=== PATIENT | female | born 1940 | race Caucasian/White ===

== ENCOUNTER → 2017-01-24 | Outpatient (CLI) | payer OTHER ==
[~2017-01-24] MED LIST: ADVAIR 2501 DISK W/D PO; ALBUTEROL17 GM INH; ALPRAZOLAM PO; LORCET PLUS TAB1 TAB PO; LYRICA PO; PROTONIX PO; SINGULAIR PO; SKELAXIN PO
--- NOTE | ~2017-01-24 | MY26 ---
[facility] A Service of [facility] RADIOLOGY TEXT RESULTS PATIENT: EMELYN PRAJAPATI LOCATION: [facility] : 44 UNIT #: [id number] AGE: [address]: KRISTINA DIANA APRN SEX: F ORDER DR: [id number] [facility] [address] [place], [place] [address] [id number] O MR#: [id number] Acc #: [id number] NAME: EMELYN PRAJAPATI. : 1940 SEX: F STUDY DATE/TIME: 01/24/2017 12:31 UNIT: [facility] ROOM: STUDY DESCRIPTION: MY [facility] DIAGNOSTIC W/ CAD BILAT Attending Physician: Kristina Diana Referring Physician: Lew Jaffe M.D. Ordering Physician: Staff Doctor Not On Primary Care Physician: Kristina Diana MEDICAL IMAGING REPORT This report is preliminary unless electronic signature is present EXAM Bilateral digital screening mammogram with CAD. DATE 01/24/2017 HISTORY Indeterminate grouping of microcalcifications in the right breast on previous diagnostic mammogram for which 6-month follow up imaging was recommended. Left breast screening mammogram. COMPARISON Right breast digital diagnostic mammogram, 09/16/2015. Bilateral screening mammogram 08/28/2015, and 04/02/2013. TECHNIQUE CC and MLO views were obtained of each breast utilizing digital technique and reviewed with an FDA-approved CAD device. Spot magnification images were obtained of the right breast in the CC and MLO planes as well. FINDINGS Scattered fibroglandular densities are present bilaterally. There is a fibronodular pattern to each breast. No new or suspicious nodules are identified. There are extensive benign-appearing calcifications throughout each breast. In particular, one grouping of microcalcifications in the anterior third of the right breast in the upper/outer quadrant has undergone spot magnification today, and these calcifications appear to be more dense, coarse and have a benign appearance, particularly when compared to the 08/28/2015 examination. No architectural distortion is seen. [facility] A Service [facility] RADIOLOGY TEXT RESULTS PATIENT: EMELYN PRAJAPATI LOCATION: [facility] : 44 UNIT #: [id number] AGE: [address]: KRISTINA DIANA APRN SEX: F ORDER DR: Biopsy clip is seen within the central right breast in the upper outer quadrant, unchanged. IMPRESSION 1. BIRADS 2. Benign findings. Previously described grouping of indeterminate calcifications in the upper/outer right breast appears more dense, coarse, and have a benign appearance. Routine bilateral screening mammogram recommended in one 1 year. Findings and recommendations were discussed with the patient today in the radiology department in the presence of her daughter. BIRADS 2. Patients over the age of 40 are entered into a reminder system with target due date for the next mammogram. A result letter will also be sent to the patient. BIRADS: 2 Benign findings. Dictated by... Nasra Luu M.D. THIS IS AN ELECTRONICALLY VERIFIED REPORT Nasra Luu M.D. at 01/27/2017 8:34 AM POORNIMA/trena TD: 01/24/2017 21:46 JOB #: [id number] MEDICAL IMAGING REPORT Page 1 of 1 COPY
== END | disposition home or self-care (01) ==
LOC: CWCC 01-17 15:45
DX: R92.0 Mammographic microcalcification found on diagnostic imaging of breast (principal)
CPT/HCPCS: G0204